=== PATIENT | male | born 1970 | race African-American/Black ===

== ENCOUNTER → 2017-07-06 11:39 | Day surgery (SDC) | payer OTHER ==
--- NOTE | 2017-06-28 21:03 | HP ---
CC: Dr. Combs * PREOPERATIVE HISTORY AND PHYSICAL: DATE OF PREOPERATIVE HISTORY AND PHYSICAL EXAMINATION: 06/27/17. DATE OF ADMISSION: 07/06/17 This patient is scheduled for same-day surgery admission by Dr. Allen on 07/06/17. ATTENDING SURGEON: Dr. Sony Allen * (dictated by Amy Hernandez NP). CHIEF COMPLAINT: Bleeding hemorrhoids. HISTORY OF PRESENT ILLNESS: The patient is a 47-year-old male, known to Dr. Allen with a long history of bleeding hemorrhoids. The patient underwent 2 attempts at hemorrhoid banding by Dr. Allen without resolution. Dr. Allen has now recommended hemorrhoidectomy as a same-day surgery procedure and has discussed the nature of the procedure, the rationale for the procedure, the relevant risks and benefits and today I reviewed the typical postoperative care and recovery. The patient has had a chance to ask questions and stated that he understands the information and is satisfied with the answers given to his questions. He will sign surgical consent on the day of surgery. He underwent colonoscopy on 06/13/17. PAST MEDICAL HISTORY: Significant for obesity, GERD, depression, migraine headaches, bipolar disorder. PAST SURGICAL HISTORY: Hemorrhoid banding on 2 separate occasions; excision of right breast mass benign on 2 separate occasions and extraction of teeth in childhood. MEDICATIONS: 1. Hydroxyzine 25 mg 1 to 2 tablets every 6 to 8 hours as needed for anxiety. 2. Verapamil ER 120 mg p.o. daily. 3. Magnesium oxide 400 mg p.o. daily. 4. Vitamin B2 100 mg 4 tablets daily. 5. Duloxetine 60 mg 1 capsule p.o. daily in the evening. 6. Sumatriptan 100 mg 1 tablet at the onset of migraine headache. 7. Seroquel 50 mg 1 to 2 tablets p.o. every night at bedtime. 8. Bupropion 300 mg p.o. daily in the morning. 9. Skelaxin 800 mg p.o. t.i.d. p.r.n. 10. Omeprazole 20 mg p.o. daily. 11. Ranitidine 300 mg p.o. at bedtime. 12. Fish oil supplement daily at bedtime. 13. Multivitamin daily. 14. Lactaid tablets before each meal. ALLERGIES: No known drug allergies. FAMILY HISTORY: No known anesthesia complications, bleeding tendencies, or clotting disorders. SOCIAL HISTORY: He quit smoking approximately 6 years ago after 25 years of 1- pack per day. He has not had alcohol since 2007. He is employed as a licensed substance abuse counselor and is . REVIEW OF SYSTEMS: Constitutional: No fevers, chills, night sweats, excessive fatigue, or weight loss. The patient is currently trying to lose weight and is dieting and working out with the marine animal trainer and has lost 11 pounds over the past month. Endocrine: No diabetes or thyroid disease. Hematologic: No easy bruising or bleeding. No previous blood transfusions. Respiratory: No shortness of breath. No chronic cough or hemoptysis. Cardiovascular: No anginal chest pain or palpitations. Gastrointestinal: No nausea or vomiting; he is treated with good effect with acid reducers for GERD. He denies any diarrhea. He has bleeding related to his hemorrhoids. Genitourinary: No dysuria. Musculoskeletal: No chronic joint or back pain. Neurologic: History of migraine headaches. No recent blurred vision. No areas of focal weakness. General: No previous anesthesia complications. No history of deep vein thrombosis or pulmonary embolism. No previous blood transfusions. Psychiatric: Treated for depression. 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 PHYSICAL EXAMINATION GENERAL SURVEY: The patient is a 47-year-old male, obese, well developed, in no acute distress. VITAL SIGNS: Height 73 inches, weight 256 pounds, body mass index 33.8. Blood pressure 136/84, pulse 76 and regular, respiratory rate 18, and temperature 97.8 tympanic. HEENT: Benign. NECK: Supple. No cervical lymphadenopathy. LUNGS: Breath sounds bilaterally clear and equal. HEART: Regular rate and rhythm. No murmurs or rubs appreciated. ABDOMEN: Active bowel sounds, obese, soft, nondistended, and nontender throughout. No obvious masses, organomegaly, or evidence of ventral hernia. GENITALIA EXAM: Deferred. RECTAL EXAM: As done per Dr. Allen. Focused examination of perianal area revealed no lesions. Digital rectal exam described as within normal limits. On anoscopy, large internal hemorrhoids with signs of recent bleeding were appreciated. EXTREMITIES: Warm without edema or skin ulceration. NEUROLOGIC: Alert and oriented x3. Steady gait. SKIN: Warm, dry, and intact. IMPRESSION: Internal hemorrhoids. PLAN: Same-day surgery admission to Dr. Allen's service on 07/06/17 , for hemorrhoidectomy. LISSETH HERNANDEZ, UPSET OPERATOR [id number]/[facility] #: [id number] [place]
[~2017-07-06 11:39] MED LIST: Atracurium* 10 MG/ML 10 ML VIAL ONE; Buffered Lidocaine 0.9% SYRIN* 5 ML/SYR SYRINGE INTRADERM ONE; Buffered Lidocaine 0.9% SYRIN* 5 ML/SYR SYRINGE ONE; Bupivacaine 0.25% SDV* 30 ML ONE; Dexamethasone IV* 4 MG/ML 1 ML (4 MG) ONE; DiMENhydriNATE IV* 50 MG/ML VIAL IV PUSH PRN; Gelfoam 12-7 ADSORBABL SPONGE* 1 EA SPONGE ONE; Glycopyrrolate IV* 0.2 MG/ML 1 ML VIAL ONE; HYDROcodone/ACETAMIN 5-325 MG* 1 TAB PO PRN; HYDROmorphone INJ* 2 MG/ML CARPUJECT SYRINGE IV PRN; Methylene Blue 0.5 %* 50 MG/10 ML AMP IV ONE; Midazolam* 1 MG/ML 5 ML VIAL (5 MG) ONE; Neostigmine Methylsulfate* 2 MG/2 ML SYRINGE ONE; Ondansetron INJ* 2 MG/ML VIAL IV PRN; Ondansetron INJ* 2 MG/ML VIAL ONE; Propofol* 10 MG/ML 20 ML BTL IV PUSH ONE; ceFOXitin 2 GM IVPREMIX* 2 GM/50 ML BAG ONE; fentaNYL* 50 MCG/ML 2 ML VIAL (100 MCG VIAL) IV PRN; fentaNYL* 50 MCG/ML 2 ML VIAL (100 MCG VIAL) ONE; oxyCODONE TAB* 5 MG TAB PO PRN; oxyCODONE/Acetamin 5/325 MG* TAB PO PRN
[2017-07-06 16:06] VITALS: BP 134/68
--- NOTE | 2017-07-23 09:34 | OP ---
OPERATIVE REPORT: DATE OF OPERATION: 07/06/17 DATE OF : 68 SURGEON: Sony Allen MD. REPERTOIRE MANAGER: KAT Garcia. ANESTHESIA: General anesthesia. PRE-OP DIAGNOSIS: Symptomatic hemorrhoids. POST-OP DIAGNOSIS: Symptomatic hemorrhoids. OPERATIVE PROCEDURE: Exam under anesthesia and hemorrhoidectomy. BLOOD LOSS: Minimal. FLUIDS: 500 cc of crystalloid fluid given. SPECIMEN: Hemorrhoids. DRAINS: None. DESCRIPTION OF PROCEDURE: The patient was identified in the preoperative area, consent was signed. He was taken to the operating room. General anesthesia was induced on the stretcher and the patient was placed in the prone position on the OR table. Buttocks were taped apart. The patient was placed in a Raj-knife prone position. Preoperative antibiotics were given. The patient was draped and a time- out was performed. Review of the perianal area revealed no external hemorrhoids. Digital rectal exam was performed and we dilated the anus up to three of the surgeon's fingers. This allowed us to place an anal retractor in. Hemorrhoid was identified anteriorly. The perianal skin was injected with lidocaine. We placed a 2-0 Polysorb suture proximally at the area of the rectum for traction purposes. Next, an incision was made overlying the perianal skin, extending this to the mucosa right up to the area of the initial stitch placement, encompassing the full hemorrhoid. Hemorrhoid appeared approxim ately 1 cm. It showed minimal active bleeding. It was broad based and we dissected through the muco sa, lifting the hemorrhoid tissue off of the sphincter muscle. We utilized LigaSure device for hemos tasis and passed off the specimen. Hemostasis was achieved and then we used the 2-0 Polysorb suture to baseball stitch the mucosa together and then turn this into a subcutaneous closure when I reached the anoderm. The patient tolerated the procedure well. We placed a portion of Gelfoam in the anus. The patient was transferred to the stretcher and woken up, extubated, and transferred to the PACU in stable condition. [id number]/[facility] #: [id number]
== END | disposition home or self-care (01) ==
LOC: OR 11:39
PROVIDERS: ATTEND Surgery
DX: K64.8 Other hemorrhoids (principal); Z87.891 Personal history of nicotine dependence; E66.9 Obesity, unspecified; K21.9 Gastro-esophageal reflux disease without esophagitis; F31.9 Bipolar disorder, unspecified; G43.909 Migraine, unspecified, not intractable, without status migrainosus; Z68.33 Body mass index [BMI] 33.0-33.9, adult
CPT/HCPCS: 88304; A9270-GY; J0694; J1100; J2250; J2405; J2704; J3010

== ENCOUNTER 2017-12-07 05:54 | Day surgery (SDC) | payer OTHER ==
[~2017-12-07 05:54] MED LIST changes: -Atracurium* 10 MG/ML 10 ML VIAL ONE; -Buffered Lidocaine 0.9% SYRIN* 5 ML/SYR SYRINGE ONE; -Bupivacaine 0.25% SDV* 30 ML ONE; -Dexamethasone IV* 4 MG/ML 1 ML (4 MG) ONE; -DiMENhydriNATE IV* 50 MG/ML VIAL IV PUSH PRN; -Gelfoam 12-7 ADSORBABL SPONGE* 1 EA SPONGE ONE; -Glycopyrrolate IV* 0.2 MG/ML 1 ML VIAL ONE; -HYDROcodone/ACETAMIN 5-325 MG* 1 TAB PO PRN; -HYDROmorphone INJ* 2 MG/ML CARPUJECT SYRINGE IV PRN; -Methylene Blue 0.5 %* 50 MG/10 ML AMP IV ONE; -Midazolam* 1 MG/ML 5 ML VIAL (5 MG) ONE; -Neostigmine Methylsulfate* 2 MG/2 ML SYRINGE ONE; -Ondansetron INJ* 2 MG/ML VIAL IV PRN; -Ondansetron INJ* 2 MG/ML VIAL ONE; -Propofol* 10 MG/ML 20 ML BTL IV PUSH ONE; -ceFOXitin 2 GM IVPREMIX* 2 GM/50 ML BAG ONE; -fentaNYL* 50 MCG/ML 2 ML VIAL (100 MCG VIAL) IV PRN; -fentaNYL* 50 MCG/ML 2 ML VIAL (100 MCG VIAL) ONE; -oxyCODONE TAB* 5 MG TAB PO PRN; -oxyCODONE/Acetamin 5/325 MG* TAB PO PRN
[2017-12-07] MEDS ORDERED: Dexamethasone IV* 4 MG/ML 1 ML (4 MG) IV SLOW PU ONE (06:00)
[2017-12-07] MEDS ORDERED: Dexamethasone IV* 4 MG/ML 1 ML (4 MG) ONE (06:04)
[2017-12-07] MEDS ORDERED: ceFAZolin 2 GM PREMIX (*) 2 GM/50 ML BAG IVPB ONE (06:04)
[2017-12-07] MEDS ORDERED: Famotidine IV* 10 MG/ML 2 ML (20 mg) ONE (06:04)
[2017-12-07] MEDS ORDERED: Methylene Blue 0.5 %* 50 MG/10 ML AMP IV ONE (07:07)
[2017-12-07] MEDS ORDERED: Bupivacaine 0.25% SDV* 30 ML ONE (07:07)
[2017-12-07] MEDS ORDERED: Ondansetron INJ* 2 MG/ML VIAL ONE (07:14)
[2017-12-07] MEDS ORDERED: Propofol* 10 MG/ML 20 ML BTL IV PUSH ONE (07:14)
[2017-12-07] MEDS ORDERED: Ketorolac INJ* 30 MG/ML 1 ML VIAL ONE (07:14)
[2017-12-07] MEDS ORDERED: Lidocaine 2% PF * 5 ML VIAL ONE (07:14)
[2017-12-07] MEDS ORDERED: Chloroprocaine 3%* 20 ML VIAL ONE (07:27)
[2017-12-07] MEDS ORDERED: Midazolam* 1 MG/ML 5 ML VIAL (5 MG) ONE (07:28)
[2017-12-07] MEDS ORDERED: fentaNYL* 50 MCG/ML 2 ML VIAL (100 MCG VIAL) IV PRN (08:02)
[2017-12-07] MEDS ORDERED: Ondansetron INJ* 2 MG/ML VIAL IV PRN (08:02)
[2017-12-07] MEDS ORDERED: Naloxone* 0.4 MG/ML 1 ML VIAL IV PRN (08:02)
[2017-12-07] MEDS ORDERED: oxyCODONE/Acetamin 5/325 MG* TAB PO PRN (08:02)
[2017-12-07] MEDS ORDERED: Gelfoam 12-7 ADSORBABL SPONGE* 1 EA SPONGE ONE (08:24)
[2017-12-07] MEDS ORDERED: Gelfoam Sponge SIZE 100* SPONGE ONE (08:27)
--- NOTE | 2017-12-07 08:57 | BRIEFOPN ---
Brief Operative Note - Surgery Procedures: Procedures Pre-OP Diagnoses: bleeding internal hemorrhoids Post-op Diagnosis: same Procedure: Excisional hemorrhoidectomy, banding hemorrhoidectomy Surgeon: Tiffany Asst: none Anethesia: spinal EBL: minimal IVF: crystalloid Specimen: hemorrhoids Drains: none
[2017-12-07 09:18] VITALS: BP 117/79
--- NOTE | 2017-12-07 21:06 | OP ---
CC: Dr. Jose Combs; [facility] * DATE OF OPERATION: 12/07/17 - [facility] DATE OF : 68 SURGEON: Sony Allen MD [employer]ACKSMITH: None. ANESTHESIOLOGIST: Dr. Traylor ANESTHESIA: Spinal anesthesia. PRE-OP DIAGNOSIS: Bleeding internal hemorrhoids. POST-OP DIAGNOSIS: Bleeding internal hemorrhoids. OPERATIVE PROCEDURE: Excisional hemorrhoidectomy x1 and banding hemorrhoidectomy x1. ESTIMATED BLOOD LOSS: Minimal. IV FLUIDS: Minimal crystalloid fluid given. SPECIMEN: Hemorrhoid. DESCRIPTION OF PROCEDURE: Mr. Kemp was identified in the preoperative area. Case discussed with him and his . Consent signed. He was taken to the operating room. Spinal anesthesia was delivered on the stretcher and the patient was placed on the OR table in the prone position. Buttocks were taped apart and the perianal area was prepped with Betadine. He was draped and the time-out was performed. I dilated the anus up to three fingers slowly and gently. We put anal retractors in. We did see a small tear anteriorly, possibly from the dilation. Examination of the anus revealed a right posterior hemorrhoid that appeared bulky. No other lesions. I did see signs of recent bleed on this site as well. A 2-0 Vicryl stitch was then placed proximal to the hemorrhoid. We then incised the perianal skin with scalpel, lifted off the mucosa with blunt and sharp dissection, freeing the hemorrhoidal tissue from the sphincter muscle, taking the large vein utilizing LigaSure. Once the hemorrhoid was off, passed of as specimen, we reapproximated mucosa with a running 2-0 Vicryl stitch that had been placed previously and took this right out the perianal skin. Hemostasis was excellent. Review of the anus revealed a small area medial to the excision site that I felt might benefit from my banding ligation and not excision at this point. We rubber-banded this, and a Gelfoam was then placed into the anus, and the patient was transferred to the PACU in stable condition. [id number]/[facility] #: [id number] [facility]
== END 2017-12-07 09:35 | disposition home or self-care (01) ==
LOC: OR 05:54
PROVIDERS: ATTEND Surgery
DX: K64.8 Other hemorrhoids (principal); Z87.891 Personal history of nicotine dependence; F31.9 Bipolar disorder, unspecified; F41.9 Anxiety disorder, unspecified
CPT/HCPCS: 36415; 80061; 88304; A9270-GY; J0690; J1100; J1885; J2250; J2400; J2405; J2704

== ENCOUNTER 2019-07-25 11:31 | Emergency (ER) | payer BC, OTHER ==
--- OUTSIDE RECORDS SUMMARY | 2019-07-25 11:47 | XMS REPORT | Continuity of Care Document ---
:1970 External Reference #:[id number] Author Name Marci Dickey MD Address [address] [place] [address] Problems Description No Information Available Social History Type Date Description Comments Sex Unknown Allergies, Adverse Reactions, Alerts Description No Known Drug Allergies Medications Active Medications SIG Qnty Indications Ordering Date Provider Ranitidine HCL Take One Tablet 60tabs Marci Dickey, 07/13/2019 150mg By Mouth Twice A MD Tablets Day Metaxalone 1 three times 90tabs Unknown 04/23/2019 800mg Tablets daily prn Oral Hydroxyzine HCL Take One Tablet 120tabs Marci Dickey, 01/22/2019 50mg By Mouth Four MD Tablets Times A Day Rizatriptan Benzoate Take 1 Tablet By 9tabs Paul Bhakta MD 11/13/2018 10mg Mouth AT Onset Tablets Of Migraine. May Repeat In 2 Hours Maximum Daily Dose = Two Tablets Duloxetine HCL Take Three 90caps Marci Dickey, 10/06/2018 30mg Caps Capsules By MD CISNEROS Part Mouth Every Day Sumatriptan Oral Unknown 07/31/2018 Powder Omeprazole Take One Capsule 30caps Marci Dickey, 07/31/2018 20mg Capsules By Mouth Every MD DR Day Bupropion Unknown Hydrochloride ER (XL) Vitamin D3 Ultra Unknown Potency Optic-Vites Unknown Sildenafil Citrate Unknown Lorazepam Unknown Magnesium Unknown Vitamin B12 Unknown [place] 3 500 Unknown History Medications Metaxalone 1 3 times a day 90tabs Unknown 03/23/2019 - 04/22/2019 800mg Tablets Oral Bupropion Hydrochloride ER 1 daily Oral 30tabs Unknown 01/22/2019 - 08/2019 (XL) 300mg Tablets ER 24HR Ranitidine HCL 1 twice daily 60tabs Unknown 01/22/2019 - 02/21/2019 150mg Tablets Oral Skelaxin 1 3 times a day 90tabs Unknown 01/22/2019 - 02/21/2019 800mg Tablets Oral Immunizations CPT Code Status Date Vaccine Lot # 40030 Given 07/31/2018 Influenza Virus Vaccine, Quadrivalent, Split Virus, Im Use 0.5ML 59907 Given 07/31/2018 Flu < 65 years 85191 Given 07/31/2018 Influenza Virus Vaccine, Quadrivalent, Split, Preservative Free 47122 Given 07/31/2018 Flumist 19518 Given 07/31/2018 Flu High Dose 41418 Given 07/31/2018 Influenza Virus Vaccine, Split, Preserv Free, Intradermal Use 41096 Given 05/13/2011 Pneumovax - for >=2years - PPSV23 Vital Signs Date Vital Result Comment 07/20/2019 9:32am BP Systolic 122 mmHg BP Diastolic 80 mmHg Heart Rate 83 /min Body Temperature 97.7 F O2 % BldC Oximetry 98 % 10/06/2018 11:39am BP Systolic 138 mmHg Height 73.00 inches 6'1.00" Weight 259.00 lb Heart Rate 102 /min Body Temperature 97.5 F O2 % BldC Oximetry 97 % BMI (Body Mass Index) 34.17 kg/m2 Results Description No Information Available Procedures Description No Information Available Medical Devices Description No Information Available Encounters Type Date Location Provider Dx Diagnosis Office Visit 07/20/2019 [facility] Marci Dickey MD M25.512 Pain in left 9:15a shoulder M54.5 Low back pain Assessments Date Code Description Provider 07/20/2019 M25.512 Pain in left shoulder Marci Dickey MD 07/20/2019 M54.5 Low back pain Marci Dickey MD Plan of Treatment 07/20/2019 - Marci Dickey MDM25.512 Pain in left shoulderReferral:Fito Sun MD,M54.5 Low back painNew Xrays:MRI Lumbar Spine W/O Contrast , Ordered: 07/20/19New Orders:Physical Therapy Evaluate And Treat, Ordered: 04/30 Functional Status Description No Information Available Mental Status Description No Information Available Referrals Refer to Reason for Referral Status Appt Date Fito Sun MD Longstanding shoulder pain following Sent injury with falling down stairs and going through drywall shoulde first. Now having increased pain following moving boxes with outstretched arm. [address] [place] [address] [phone]
[2019-07-25] MEDS ORDERED: Ibuprofen TAB* 600 MG PO ONE (14:08)
--- NOTE | 2019-07-25 14:12 | ED ---
Back Pain - HPI Summary HPI Summary: Pt is a 49 y/o M presenting to the ED with a chief complaint of back pain. He has chronic back issues, but over the past couple of weeks it has become excruciating. He saw his PCP who wants an MRI done as well as physical therapy, but this has not been done yet. Pt denies bowel or bladder changes. Sx worsened by twisting. Hes tried Maloxicam that initially helped but does not anymore, so he does not take it. No weakness. Pt states when he gets "shocks of pain" radiates left LE. No changes to bowel bladder. no pain in penis, testicles. No trauma. no imaging. Pts medications reviewed this visit. - History of Current Complaint Chief Complaint: EDBackInjuryPain Stated Complaint: BACK PAIN PER PT Time Seen by Provider: 07/25/19 13:54 Hx Obtained From: Patient Onset/Duration: Gradual Onset, Lasting Weeks, Still Present Onset/Duration: Started Weeks Ago, Still Present Timing: Constant, Lasting Weeks Back Pain Location: Is Discrete @ - mid-lower back Severity Initially: Moderate Severity Currently: Severe Pain Intensity: 8 Pain Scale Used: 0-10 Numeric Aggravating Symptom(s): Movement Alleviating Symptom(s): Nothing Associated Signs And Symptoms: Negative: Bladder Incontinence, Bowel Incontinence - Allergies/Home Medications Allergies/Adverse Reactions: Allergies Allergy/AdvReac Type Severity Reaction Status Date / Time lactose Allergy GI Upset Verified 07/25/19 11:35 PMH/Surg Hx/FS Hx/Imm Hx Previously Healthy: Yes Endocrine/Hematology History: Denies: Hx Diabetes, Hx Thyroid Disease Cardiovascular History: Reports: Hx Angina - CHEST PAIN ON EXERTION (PRESSURE PER PT) Denies: Hx Coronary Artery Disease, Hx Hypercholesterolemia, Hx Hypertension , Hx Myocardial Infarction, Hx Pacemaker/ICD, Hx Valvular Heart Disease Respiratory History: Denies: Hx Asthma, Hx Chronic Obstructive Pulmonary Disease (COPD) GI History: Reports: Hx Gastroesophageal Reflux Disease - ON MEDICATION FOR, Hx Ulcer - gerd, Other GI Disorders - hemorrhoids Musculoskeletal History: Reports: Hx Arthritis - HANDS AND KNEES, Other Musculoskeletal History - Degenerative joint disease involving multiple joints Denies: Hx Scoliosis Sensory History: Denies: Hx Contacts or Glasses, Hx Hearing Aid Opthamlomology History: Denies: Hx Contacts or Glasses Neurological History: Reports: Hx Migraine - ROUTINE AND PRN MEDICATION FOR Denies: Hx Headaches Psychiatric History: Reports: Hx Anxiety - ON MEDICATION FOR, Hx Depression - Bipolar affective disorder - treated with meds, Hx Substance Abuse Denies: Hx Panic Disorder - Cancer History Hx Chemotherapy: No Hx Radiation Therapy: No - Surgical History Surgery Procedure, Year, and Place: ORAL SURGERY 8 YRS OLD. 2 lumps removed - 1 from each breast both benign. HEMORRHOIDECTOMY Hx Anesthesia Reactions: No - Immunization History Date of Tetanus Vaccine: Unknown Date of Influenza Vaccine: Unknown Infectious Disease History: No Infectious Disease History: Denies: Hx Clostridium Difficile, Hx Hepatitis, Hx Human Immunodeficiency Virus (HIV), Hx of Known/Suspected MRSA, Hx Shingles, Hx Tuberculosis, Traveled Outside the [place] in Last 30 Days - Family History Known Family History: Positive: Non-Contributory Negative: Diabetes - Social History Occupation: Employed Full-time Lives: With Family Alcohol Use: None Hx Substance Use: No Substance Use Type: Reports: None Substance Use Comment - Amount & Last Used: NONE IN THE LAST 9 YEARS Hx Tobacco Use: Yes Smoking Status (MU): Former Smoker Type: Cigarettes Amount Used/How Often: smoked for 20-23 years 1ppd Review of Systems Constitutional: Negative Negative: Other - bowel changes Positive: no symptoms reported Positive: Myalgia - back pain All Other Systems Reviewed And Are Negative: Yes Physical Exam - Summary Physical Exam Summary: Vital Signs Reviewed: Yes A+Ox3, discomfort with movement Eyes: Conjunctiva Clear, JYOTHI. EOM intact and full ENT: Hearing grossly normal TM x 2 clear, mmoist, uvula midline, no exudate, no erythema Neck: Positive: Supple Respiratory: Positive: No respiratory distress, No accessory muscle use + CTA throughout no w/r Cardiovascular: RRR nl s1, s2 no m/r CBT <2 sec abd soft + BS nt/nd no guarding, no distension Musculoskeletal Exam: No spinous process pain + TTP left laraspinal distal lumbar and right SI joint + SLE b/l + flex/ext knee, ankle + great toe extension increases with external rotation right hip pain with ambulation Neurological: Positive: Alert, + sensation throughout, no saddle numbness 2 + patellar no clonus Psychological: Positive: Normal Response To examiner Skin: Positive: no rash, no ecchymosis Triage Information Reviewed: Yes Vital Signs On Initial Exam: Initial Vitals Temp Pulse Resp BP Pulse Ox 97.4 F 111 20 154/97 98 11/13/19 11:32 07/25/19 11:32 07/25/19 11:32 07/25/19 11:32 07/25/19 11:32 Vital Signs Reviewed: Yes Procedures - Sedation Patient Received Moderate/Deep Sedation with Procedure: No Diagnostics - Vital Signs Vital Signs Temp Pulse Resp BP Pulse Ox 07/25/19 12:50 98.1 F 101 19 148/93 98 07/25/19 11:32 97.4 F 111 20 154/97 98 - Laboratory Lab Statement: Any lab studies that have been ordered have been reviewed, and results considered in the medical decision making process. - Radiology L-spine XR Radiology Interpretation Completed By: Radiologist Summary of Radiographic Findings: No fracture of the lumbar spine is noted. ED physician has reviewed this report. Re-Evaluation - Re-Evaluation First Eval Comment: Reviewed images location. States his pain is moderately NSAIDs here. Patient not taken any analgesia prior to evaluation today. Reviewed images. Given patient referral for sports medicine as well as neurosurgery. Recommended heat. Motrin Tylenol. We'll give a short course of prednisone. Strict return precautions per the patient states comfort with paln work note given Back Pain Course/Dx - Course Course Of Treatment: Patient presents to the emergency department for evaluation of low back pain. Patient states he's had it before but this time as worse pain patient did see his PCP who is referred to physical therapy as well as MRI. Neither of these have started. Patient is taking over-the- counter meloxicam and Motrin for pain with improvement. Patient states the pain is sharp this paresthesias left leg. Patient states otherwise is just tight his back. No bowel bladder changes. No leg weakness. No direct trauma. On exam vital signs are stable. BP elevated - related to condition. Patient appears carpal. Patient with pain in the paraspinal left lower lumbar area as well as right SI joint. Patient distal CSM intact. We'll give patient some analgesia, check some images. Discussed with patient that meloxicam isn't infected and should take care when taken with Motrin. Patient states understanding. Heat and stretch. We will reexamine and discuss after images. Patient in agreement with plan. - Diagnoses Provider Diagnoses: Back pain Discharge ED - Sign-Out/Discharge Documenting (check all that apply): Patient Departure - Discharge Plan Condition: Stable Disposition: HOME Prescriptions: HYDROcodone/ACETAMIN 5-325 MG* [[place] 5-325 TAB*] 1 - 2 tab PO Q8H PRN #12 tab MDD 6 PRN Reason: severe pain Patient Education Materials: Acute Low Back Pain (ED) Referrals: Marci Dickey MD [Primary Care Provider] - [facility] [Provider Group] Additional Instructions: Okay to alternate ibuprofen (Advil, Motrin) and Tylenol product (Tylenol or [place]) every 3 hours for pain or fever. Take with food. Do NOT take for more than 4-5 days. If you are taking Meloxicam, do NOT take ibuprofen. norco is a narcotic - do not drive, operate machinery or drink alcohol while taking this medication Take prednisone as prescribed Apply heat to your back - once your muscles are warm, slow gentle stretching exercises It is very important you follow-up with physical therapy You have been given the contact information for sports medicine - this group has a treatment program from back pain - Billing Disposition and Condition Condition: STABLE Disposition: Home - Attestation Statements Document Initiated by Scribe: Yes Documenting Scribe: Jessica Pina Provider For Whom Samuele is Documenting (Include Credential): Fifi Tyson MD. Scribe Attestation: IJessica, scribed for Fifi Tyson MD. on 07/29/19 at 1828. Scribe Documentation Reviewed: Yes Provider Attestation: The documentation as recorded by the scribeJessica accurately reflects the service I personally performed and the decisions made by me, Fifi Tyson MD. Status of Scribe Document: Viewed
[2019-07-25 15:36] VITALS: BP 153/98
== END 2019-07-25 15:27 | disposition home or self-care (01) ==
LOC: ED 11:31
DX: M54.5 Low back pain (principal); K21.9 Gastro-esophageal reflux disease without esophagitis; G43.909 Migraine, unspecified, not intractable, without status migrainosus; F41.9 Anxiety disorder, unspecified; F31.9 Bipolar disorder, unspecified; Z91.011 Allergy to milk products; Z87.891 Personal history of nicotine dependence
CPT/HCPCS: 72110; 99282; A9270-GY